=== PATIENT | male | born 1970 | race Caucasian/White ===

== ENCOUNTER 2018-07-29 09:24 | Emergency (ER) | payer MEDICAID ==
[~2018-07-29] VITALS: Ht 172.7 cm; Wt 79.0 kg
[2018-07-30 14:54] LABS: *AMPHETAMINES SCREEN URINE NEGATIVE (NEGATIVE); *BARBITURATES SCREEN URINE NEGATIVE (NEGATIVE); *BENZODIAZEPINES SCREEN URINE NEGATIVE (NEGATIVE); *COCAINE SCREEN URINE NEGATIVE (NEGATIVE)
[2018-07-30 14:55] LABS: CANNABINOID URINE SCREEN NEGATIVE (NEGATIVE); METHADONE URINE SCREEN NEGATIVE (NEGATIVE); OPIATES URINE SCREEN NEGATIVE (NEGATIVE); PHENCYCLIDINE URINE SCREEN NEGATIVE (NEGATIVE)
[2018-07-30 18:22] VITALS: BP 128/72
== END 2018-07-30 18:24 | disposition home or self-care (01) ==
LOC: ER 09:34
DX: Z04.89 Encounter for examination and observation for other specified reasons (principal); Z59.0 Homelessness
CPT/HCPCS: 80305; 99283

== ENCOUNTER 2020-03-30 11:21 | Emergency (ER) | payer MEDICAID, OTHER ==
[~2020-03-30] VITALS: Ht 170.2 cm; Wt 78.0 kg
[2020-03-30 11:24] VITALS: BP 132/80
== END 2020-03-30 13:26 | disposition home or self-care (01) ==
LOC: ER 11:21
DX: E86.0 Dehydration (principal)
CPT/HCPCS: 99283